=== PATIENT | male | born 1965 | race Two or more races ===

== ENCOUNTER → 2024-05-22 | Outpatient (CLI) | payer MEDICAID, SELFPAY ==
--- NOTE | 2024-05-22 10:32 | XR_ITS ---
Examination: Knee, right , 3 views Technique: Knee AP, lateral, oblique 3 views Date and time of exam: May 22, 2024 1034 hours INDICATIONS: Right knee pain beginning 3 months ago FINDINGS: Advanced tricompartment osteoarthritis, most severe medial patellofemoral joints No fracture or dislocation Small knee effusion IMPRESSION: Advanced tricompartment osteoarthritis
--- NOTE | 2024-05-22 10:32 | XR_ITS ---
Examination: Knee, left , 3 views Technique: Knee AP, lateral, oblique 3 views Date and time of exam: May 22, 2024 1034 hours INDICATIONS: Onset left knee pain beginning 12 years ago FINDINGS: Advanced tricompartment osteoarthritis, most severe medial and patellofemoral joints No fracture or dislocation IMPRESSION: Advanced tricompartment osteoarthritis
--- NOTE | 2024-05-22 10:32 | XR_ITS ---
Examination: Lumbar spine 3 views Technique one AP lateral coned lateral lower lumbar spine 3 views Exam date and time: May 22, 2024 1041 hours INDICATIONS: Left lower back pain beginning 6 months ago. FINDINGS: Grade 1 spondylolisthesis L5 on S1 Mild to moderate lumbar disc narrowing L4-L5, L5-S1 Prominent lumbar spondylosis No lumbar fracture IMPRESSION: Grade 1 spondylolisthesis L5 on S1 Mild to moderate lumbar degenerative disc disease L4-L5, L5-S1
== END | disposition home or self-care (01) ==
LOC: CDIM 10:24
PROVIDERS: PCP Physician Assistant; Referring Provider Physician Assistant; Visit Provider Physician Assistant
DX: M17.0 Bilateral primary osteoarthritis of knee (principal); M43.17 Spondylolisthesis, lumbosacral region; M51.369 Other intervertebral disc degeneration, lumbar region without mention of lumbar back pain or lower extremity pain; M51.379 Other intervertebral disc degeneration, lumbosacral region without mention of lumbar back pain or lower extremity pain
CPT/HCPCS: 72100; 73562

== ENCOUNTER → 2024-07-16 | Outpatient (CLI) | payer MEDICAID, SELFPAY ==
--- NOTE | 2024-07-16 14:36 | XR_ITS ---
Examination: Shoulder,right, 3 views Technique: Shoulder AP internal rotation, AP external rotation, Y view shoulder, 3 views Exam date and time :July 16, 2024 1446 hours INDICATIONS: Right shoulder pain beginning one year ago. FINDINGS: Advanced narrowing glenohumeral joint No fracture or shoulder dislocation Moderate osteoarthritis acromioclavicular joint IMPRESSION: Advanced narrowing glenohumeral joint
== END | disposition home or self-care (01) ==
PROVIDERS: PCP Physician Assistant; Referring Provider Internal Medicine Rheumatology; Visit Provider Internal Medicine Rheumatology
DX: M25.811 Other specified joint disorders, right shoulder (principal)
CPT/HCPCS: 73030

== ENCOUNTER 2024-11-02 15:31 | Emergency (ER) | payer MEDICAID, SELFPAY ==
[2024-11-02 15:32] VITALS: BMI 29.0
[2024-11-02 16:02] VITALS: BP 121/74; PULSE 62; RESP 16; TEMP 37; O2SAT 96
--- NOTE | 2024-11-02 16:37 | EDNOTE_ITS ---
ED Back Injury Pain RME/HPI General Chief Complaint: Back Pain/Injury Stated Complaint: BACK PAIN Time Seen by Provider: 11/02/24 15:55 Source: patient Arrival date/time: 11/02/24 15:31 This is a case of 59-year-old male who came in in the emergency room with low back pain for 3 days worse today patient have history of chronic low back pain DDD of the lumbar since 2024 patient states that he had already MRI in the past and was treated for his chronic low back pain but lost follow-up patient is fine until 3 days prior to arrival in the emergency room patient started to have low back pain no history of recent injury or trauma thus decided to start consult here in the emergency room denies any numbness weakness tingling sensation denies any incontinence to urine or stool denies any flank pain denies any urinary symptoms Limitations: no limitations Related Data Home Medications ?Medication ?Instructions ?Recorded ?Confirmed hydrocodone 10 mg-acetaminophen 1 tab PO TID PRN Pain 11/27/18 01/11/23 325 mg tablet (Sedona) Previous Rx's ?Medication ?Instructions ?Recorded albuterol sulfate 90 mcg/actuation 2 inh inhalation Q4 H PRN 03/04/22 aerosol inhaler (Proventil HFA) bronchospasm #6.7 gram s ibuprofen 800 mg tablet (IBU) 800 mg PO Q8H #20 tabs 0 09/04/23 meloxicam 7.5 mg tablet 7.5 mg PO QDAY #10 tabs 12/27 11/18 methocarbamol 500 mg tablet 500 mg PO BID PRN neck str ain #12 01/21/24 tabs ondansetron 4 mg disintegrating 4 mg PO Q8H PRN nausea and 03/13/24 tablet vomiting #20 tabs tamsulosin 0.4 mg capsule (Flomax) 0.4 mg PO QDAY #5 c aps 03/13/24 cyclobenzaprine 10 mg tablet 10 mg PO BID PRN muscle s pasm #10 11/02/24 tabs hydrocodone 5 mg-acetaminophen 325 1 tab PO Q6H PRN pa in #10 tabs 11/02/24 mg tablet Allergies Allergy/AdvReac Type Severity Reaction Status Date / Time No Known Allergies Allergy Verified 11/02/24 15:34 Review of Systems Review of Systems Systems Reviewed: All systems reviewed, normal except as documented Constitutional Constitutional: Reports system reviewed and no additional complaints, except as documented and Reports as per HPI ENT Ears, Nose, Mouth, and Throat: Denies neck pain Cardiovascular Cardiovascular: Reports system reviewed and no additional complaints, except as documented and Reports as per HPI Respiratory Respiratory: Reports system reviewed and no additional complaints, except as documented and Reports as per HPI Gastrointestinal Gastrointestinal: Reports system reviewed and no additional complaints, except as documented and Reports as per HPI Musculoskeletal Musculoskeletal: Reports system reviewed and no additional complaints, except as documented, Reports as per HPI, Denies abnormal gait, Denies arthralgias, Denies atrophy, Reports back pain, Denies deformity, Denies joint swelling, Denies limited range of motion, Denies loss of height, Denies muscle cramps, Denies muscle weakness, Denies myalgias, Denies neck pain, Denies numbness, Denies radiating pain into limb, Denies stiffness and Denies tingling Neurologic Neurologic: Reports system reviewed and no additional complaints, except as documented, Reports as per HPI, Denies abnormal gait, Denies numbness and Denies tingling Past Medical History Past Medical History NEUROLOGIC: Negative Neurological Disorders or Seizures CARDIAC: Positive Cardiac Disorders and Varicose Veins; Negative Congestive Heart Failure RESPIRATORY: Negative Chronic Obstructive Pulmonary Disease (COPD) or Asthma GASTROINTESTINAL: Negative Gastrointestinal Disorders GENITOURINARY: Positive Genitourinary Disorders and Kidney Stones; Negative Renal Disease MUSCULOSKELETAL: Positive Musculoskeletal Disorders, Arthritis and Degenerative Disk Disease ENDOCRINE: Negative Endocrine Disorders, Diabetes Mellitus Type 1 or Diabetes Mellitus Type 2 HEMATOLOGIC: Negative Blood Disorders or Sickle Cell Disease OTHER HISTORY: Negative Hospitalization, Autoimmune Disease, Shingles, Falls, Blood Transfusions, Blood Transfusion Reaction, Anesthesia Reactions, MRSA, Clostridium Difficile or Cancer Family History FAMILY HISTORY: Negative Family Psychiatric Problems, Family Respiratory Disorders, Family Cardiac Disorders, Family Gastrointestinal Problems, Family Cancer, Family Surgery or Family Anesthesia Reaction Surgical History SURGICAL: Positive Arthroscopy (left shoulder) Social History SMOKING STATUS: Never smoker SUBSTANCE USE: does not use ED Exam General Limitations: Present no limitations General appearance: Present alert, in no apparent distress and other (Patient is awake alert oriented not in distress nontoxic looking); Absent appears intoxicated Head Head exam: Present atraumatic, normocephalic and normal inspection Eye Eye exam: Present normal appearance, PERRL and EOMI ENT ENT exam: Present normal exam, normal oropharynx and mucous membranes moist Neck Neck exam: Present normal inspection, full ROM and trachea midline; Absent tenderness, meningismus, lymphadenopathy or thyromegaly Chest Chest inspection: Present normal inspection and symmetric chest wall rise Respiratory Respiratory exam: Present normal lung sounds bilaterally; Absent respiratory distress, wheezes, stridor or prolonged expiratory phase Cardiovascular Cardiovascular exam: Present regular rate, normal rhythm and normal heart sounds Abdominal Exam Abdominal exam: Present soft and normal bowel sounds; Absent distention or tenderness Extremities Exam Extremities exam: Present normal inspection and full ROM Back Exam Back exam: Present normal inspection, full ROM, tenderness (Mild tenderness on the L1 L5) and other (No lordosis no kyphosis neurovascular intact); Absent CVA tenderness (R), CVA tenderness (L), muscle spasm, paraspinal tenderness, vertebral tenderness, rashes, sciatic notch tenderness (R), sciatic notch tender ness (L), straight leg raise (R) or straight leg raise (L) Neurological Exam Neurological exam: Present alert, oriented X3, CN II-XII intact, normal gait and reflexes normal; Absent motor sensory deficit Psychiatric Psychiatric exam: Present normal affect and normal mood Skin Skin exam: Present warm, dry, intact and normal color Course Quality Measures none Orders Category Date Time Status Dexamethasone Inj [Decadron Inj] Med 11/02/24 16:30 Discontinued 10 mg IM X1 ONE Ketorolac Inj [Toradol Inj] Med 11/02/24 16:30 Discontinued 30 mg IM X1 ONE Vital Signs Vital signs: Vital Signs Temperature 98.6 F 11/02/24 16:02 Pulse Rate 62 11/02/24 16:02 Respiratory Rate 16 11/02/24 16:02 Blood Pressure 121/74 11/02/24 16:02 Pulse Oximetry (%) 96 11/02/24 16:02 Oxygen Delivery Method Room Air 11/02/24 16:02 Patient is afebrile not tachycardic not tachypneic BP stable not hypoxic oxygen saturation is 96% on room Back Pain / Injury MDM Narrative MDM Narrative:: This is a case of 59-year-old male who came in in the emergency room with low back pain for 3 days worse today patient have history of chronic low back pain DDD of the lumbar since 2024 patient states that he had already MRI in the past and was treated for his chronic low back pain but lost follow-up patient is fine until 3 days prior to arrival in the emergency room patient started to have low back pain no history of recent injury or trauma thus decided to start consult here in the emergency room denies any numbness weakness tingling sensation denies any incontinence to urine or stool denies any flank pain denies any urinary symptoms patient is awake alert oriented not in distress nontoxic looking patient refused any test or any imaging only wanted to have pain medication here patient already took Sedona and wanted to have Toradol injection patient was given Toradol IM and dexamethasone IM here in the emergency room physical examination patient is a noted to have mild to moderate tenderness on L1 L5 no crepitation no deformity no redness no swelling no paravertebral tenderness no paraspinal tenderness no kyphosis no lordosis no CVA tenderness steady gait leg raise exam is negative abdominal exam is benign no guarding no rebound no rigidity the rest of the physical examination and neurological exam is normal and unremarkable at this point I discussed with the patient importance to see the PCP to be referred to neurosurgeon for MRI to rule out herniated disc and pain management doctor for pain control patient was prescribed with Sedona and Flexeril and he was well informed that to not take the medication at the same time Patient was discharged with comfortable condition walking with stable gait. Patient verbalized no further complains explained diagnosis and answered patient question. Patient is comfortable with the proposed management plan including the need to follow up with his/her primary care physician and any specialist if applicable Discussed patient for any urgent condition or worsening sx, He/She needed to go to emergency room immediately or call 911. Patient acknowledge the responsibility to follow up as instructed and to monitor her/his symptoms. For any persistence of the symptoms for more than 3-5 days return precaution advised. Discussed the result of the test and was given printed discharge instruction at the time of exam no signs and symptoms of cauda equina Patient data External records reviewed:: [facility] previous records Clinical information provided by:: patient Social determinants that could affect healthcare access:: none Patient has the following chronic illnesses:: None How is presenting disease/condition affected by chronic disease/condition?: no chronic disease Evaluation data The following diagnostics were reviewed and interpreted by me:: other (specify) (None) Lab and/or radiology exams considered but not ordered:: None Interpretation Summary: None Medications / Prescriptions Medications or Prescriptions considered but not ordered:: Given Medication administrations:: Medication Administration History Discontinued Medications Dexamethasone Sodium Phosphate (Dexamethasone Sod Phos Inj 10 Mg/Ml Vial) 10 mg IM X1 ONE Stop: 11/02/24 16:31 Ketorolac Tromethamine (Ketorolac Inj 60 Mg/2 Ml Vial) 30 mg IM X1 ONE Stop: 11/02/24 16:31 Given Consultations Consultation(s) initiated? (list below): No Diagnosis Differential diagnosis back pain/injury: lumbar radiculopathy, sciatica and strain of lumbar region Most likely diagnosis given after review of the tests above:: Chronic low back pain muscle spasm Admission Indicated Admission indicated?: not indicated Explain why admission is indicated or not indicated:: Not indicated Admission Request Was there a request for admission?: No Admission Attestation Admission request attestation: Not indicated Disposition Plan Disposition Plan: Discharge Discharge Attestation Discharge Attestation: The patient and all family members were given an opportunity to ask questions and understood the discharge instructions. Discharge instructions specifically effects, indications for sooner follow up or return to the emergency department, and the expected course of current diagnosis. Patient condition: Stable Discharge Plan Plan Patient Disposition: HOME (Self Care) Patient condition on transfer: Stable Prescriptions/Referrals Prescriptions/Med Rec: New hydrocodone-acetaminophen 5-325 mg tablet 1 tab PO Q6H MDD maximum 4 tabs per day PRN (Reason: pain) Qty: 10 0RF cyclobenzaprine 10 mg tablet 10 mg PO BID PRN (Reason: muscle spasm) Qty: 10 0RF No Action hydrocodone-acetaminophen [Sedona] 10-325 mg Tablet 1 tab PO TID PRN (Reason: Pain) meloxicam 7.5 mg tablet 7.5 mg PO QDAY Qty: 10 0RF methocarbamol 500 mg tablet 500 mg PO BID PRN (Reason: neck strain) Qty: 12 0RF albuterol sulfate [Proventil HFA] 90 mcg/actuation HFA aerosol inhaler 2 inh inhalation Q4H PRN (Reason: bronchospasm) Qty: 6.7 0RF ibuprofen [IBU] 800 mg tablet 800 mg PO Q8H Qty: 20 0RF tamsulosin [Flomax] 0.4 mg capsule 0.4 mg PO QDAY Qty: 5 0RF Rx Instructions: Stop taking if pass the stone ondansetron 4 mg tablet,disintegrating 4 mg PO Q8H PRN (Reason: nausea and vomiting) Qty: 20 0RF Problem List Clinical Impression: Chronic bilateral low back pain, Muscle spasm Patient/Caregiver Discharge Instructions Education Materials: Understanding Chronic Pain, Managing Chronic Pain, ED Back Spasm, No Trauma Additional Instructions: Follow-up with your primary care physician in 2 days for reevaluation and to be referred to neurosurgeon for further evaluation and treatment of your chronic low back pain for possible MRI to rule out herniated disc and to be referred to pain management doctor for pain control for any worsening symptoms or any emergent concerns such as numbness weakness tingling sensation incontinence to urine or stool call 911 or go to the nearest emergency room ice pack and warm compress as needed for pain Print Language: English Stand Alone Forms: Leticia Award Info., Patient Portal Info Letter PA/FAMILY LIFE COUNSELOR Supervising Physician PA/SCARLETT Supervising Physician: dr chavez
[2024-11-02] MEDS: KETOROLAC INJ 60 MG/2 ML VIAL 30 MG IM (16:42)
[2024-11-02] MEDS: DEXAMETHASONE SOD PHOS INJ 10 MG/ML VIAL IM (16:46)
== END 2024-11-02 16:54 | disposition home or self-care (01) ==
LOC: SERX 16:54
PROVIDERS: Emergency Provider Family Medicine
DX: M54.50 Low back pain, unspecified (principal); M62.838 Other muscle spasm; G89.29 Other chronic pain
CPT/HCPCS: 96372; 99283; J1100; J1885

== ENCOUNTER 2024-11-28 13:22 | Emergency (ER) | payer MEDICAID, SELFPAY ==
[2024-11-28 14:07] VITALS: BP 143/67; PULSE 63; RESP 18; TEMP 37.1; O2SAT 95
--- NOTE | 2024-11-28 14:18 | PD.EDRME ---
Rapid Medical Screening Exam E Arrival date/time: 11/28/24 13:22 This is a 59-year-old male that comes in to the emergency room with complaints of urinary discomfort. Patient states it feels like he had a kidney stone like he had previously patient having dysuria and urinary frequency.. Patient denies any fever, nausea, vomiting, diarrhea. I have greeted and performed a focused initial assessment of this patient. Initial appropriate labs ordered at this time. A comprehensive ED assessment and evaluation of the patient and analysis of all test and completion of medical decision making process will be conducted by additional ED provider. Chief Complaint: Urogenital-Male Time Seen by Provider: 11/28/24 13:34 Vital signs: Vital Signs Temperature 98.8 F 11/28/24 14:07 Pulse Rate 63 11/28/24 14:07 Respiratory Rate 18 11/28/24 14:07 Blood Pressure 143/67 H 11/28/24 14:07 Pulse Oximetry (%) 95 11/28/24 14:07 Oxygen Delivery Method Room Air 11/28/24 14:07
[2024-11-28 14:33] LABS: Collection Type, Urine Voided
[2024-11-28 14:43] LABS: Bilirubin,Urine Negative (Negative); Blood,Urine Negative (Negative); Clarity,Urine Clear (Clear/Hazy); Color,Urine Lt-Yellow (Lt Yel-Yel); Culture Indicated,Urine Not Indicated; Glucose, Urine Negative (Negative); Ketones,Urine Negative (Negative); Leukocyte Esterase,Urine Negative (Negative); Nitrite,Urine Negative (Negative); PH,Urine 6.0 (5.0-7.0); Protein,Urine Negative (Neg - Trace); RBC,Urine < 1 /hpf (0-3); Specific Gravity,Urine 1.023 (1.001-1.035); Squamous Epithelial Cell,Urine < 1 /hpf (0-5); Urobilinogen,Urine Negative mg/dL (0.0-1.0); WBC,Urine < 1 /hpf (0-5)
--- NOTE | 2024-11-28 14:56 | XR_ITS ---
Examination: CT abdomen and pelvis without contrast. Coronal 3-D reconstructions. Sagittal 2-D reconstructions. Date and time of exam:November 28, 2024 at 1524 hours Comparison March 12, 2024 INDICATIONS: Flank pain with burning urination today CTDI: vol (mGy): 8.88 DLP: (mGycm): 503. Technique: Axial images of the abdomen have been obtained, 3 mm slice thickness Intravenous contrast material has not been administered. Low dose protocols were performed. One or more of the following dose reduction techniques were used; automated exposure control, adjustment of the mA and/or KV according to patient size, use of iterative reconstruction technique. Findings: No focal liver or splenic lesions Contracted gallbladder No pancreatic or adrenal mass 5 mm right renal calculus 2 mm left renal calculus. Minimal wall thickening left ureter, no hydronephrosis or ureteral calculi Normal appendix No bowel obstruction Normal seminal vesicles No significant prostatomegaly Urinary bladder wall thickening up to 4 mm Grade 1 spondylolisthesis of L5 on S1. IMPRESSION: Bilateral renal calculi Findings consistent with left urinary tract infection and mild cystitis
[2024-11-28 15:28] LABS: Basophils # (Auto) 0.1 Thou/mm3 (0.0-0.2); Basophils % (Auto) 1 % (0-2.5); Eosinophils # (Auto) 0.4 Thou/mm3 (0.0-0.5); Eosinophils % (Auto) 5 % (0-10); Hematocrit 44.2 % (41.0-53.0); Hemoglobin 15.0 g/dL (13.5-16.0); Immature Granulocytes Auto 0.03 Thou/mm3 (0.00-0.00); Lymphocytes # (Auto) 1.8 Thou/mm3 (1.0-4.8); Lymphocytes % (Auto) 22 % (10-50); Mean Corpuscular HGB Conc 33.9 g/dl (31.0-37.0); Mean Corpuscular Hemoglobin 31.4 pg (25.0-35.0); Mean Corpuscular Volume 93 fL (80-100); Monocytes # (Auto) 0.9 Thou/mm3 (0.0-0.8); Monocytes % (Auto) 11 % (0-12); Neutrophils # (Auto) 4.9 Thou/mm3 (1.8-7.7); Neutrophils % (Auto) 61 % (37-80); Nucleated Red Blood Cell # 0.00 Thou/mm3 (0.00-0.00); Nucleated Red Blood Cell % 0 /100 WBC (0); Platelet Count 252 Thou/mm3 (140-440); RDW Standard Deviation 46.5 fL (35.1-43.9); Red Blood Count 4.77 Miln/mm3 (4.50-5.90); White Blood Count 8.0 Thou/mm3 (3.8-10.6)
[2024-11-28 15:31] VITALS: BP 139/83; PULSE 56; RESP 16; TEMP 36.5; O2SAT 95
[2024-11-28 15:46] LABS: Alanine Aminotransferase 16 U/L (10-49); Albumin, Serum 4.1 gm/dL (3.5-5.0); Albumin/Globulin Ratio 1.9 (1.2-2.2); Alkaline Phosphatase 51 U/L (46-116); Anion Gap 7 (7-16); Aspartate Amino Transferase 17 U/L (0-34); BUN/Creatinine Ratio 9 Ratio (12-20); Bilirubin,Total 0.7 mg/dL (0.3-1.2); Blood Urea Nitrogen 13 mg/dL (9-23); Calcium 8.9 mg/dL (8.3-10.6); Calcium (Corrected) 8.9 mg/dL (8.5-10.1); Carbon Dioxide 29.5 mMol/L (20.0-31.0); Chloride 106 mMol/L (98-107); Creatinine (Component) 1.4 mg/dL (0.6-1.3); Globulin 2.2 gm/dL (2.3-3.5); Glucose 94 mg/dL (74-106); Lipase 32 U/L (12-53); Osmolality,Calculated 283 (275-295); Potassium 4.0 mMol/L (3.4-5.1); Sodium 142 mMol/L (136-145); Total Protein 6.3 gm/dL (5.7-8.2); eGFR 58 See Note
--- NOTE | 2024-11-28 15:46 | PD.EDMALE ---
ED Male Genitalurinary RME/HPI General Chief complaint: Urogenital-Male Stated complaint: Lower abdominal pain, painful urination Time Seen by Provider: 11/28/24 13:34 Arrival date/time: 11/28/24 13:22 Limitations: no limitations RME / HPI RME / HPI Narrative: 11/28/24 13:22 This is a 59-year-old male that comes in to the emergency room with complaints of urinary discomfort. Patient states it feels like he had a kidney stone like he had previously patient having dysuria and urinary frequency.. Patient denies any fever, nausea, vomiting, diarrhea. I have greeted and performed a focused initial assessment of this patient. Initial appropriate labs ordered at this time. A comprehensive ED assessment and evaluation of the patient and analysis of all test and completion of medical decision making process will be conducted by additional ED provider. DR. HALL MAIN ED EVALUATION: 59 year old male with past medical history significant for kidney stones presents to the Emergency Department with complaint of lower abdominal pain/ suprapubic pain. He states he has more pain in the mornings when his bladder is full and when he urinates he feels a little relief from the pain. He takes Flomax. He states his pain has resolved. Related Data Home Medications ?Medication ?Instructions ?Recorded ?Confirmed hydrocodone 10 mg-acetaminophen 1 tab PO TID PRN Pain 11/27/18 01/11/23 325 mg tablet ([place]) Previous Rx's ?Medication ?Instructions ?Recorded albuterol sulfate 90 mcg/actuation 2 inh inhalation Q4H PRN 03/04/22 aerosol inhaler (Proventil HFA) bronchospasm #6.7 grams ibuprofen 800 mg tablet (IBU) 800 mg PO Q8H #20 tabs 09/04/23 meloxicam 7.5 mg tablet 7.5 mg PO QDAY #10 tabs 01/21/24 methocarbamol 500 mg tablet 500 mg PO BID PRN neck strain #12 01/21/24 tabs ondansetron 4 mg disintegrating 4 mg PO Q8H PRN nausea and 03/13/24 tablet vomiting #20 tabs tamsulosin 0.4 mg capsule (Flomax) 0.4 mg PO QDAY #5 caps 03/13/24 cyclobenzaprine 10 mg tablet 10 mg PO BID PRN muscle spasm #10 11/02/24 tabs hydrocodone 5 mg-acetaminophen 325 1 tab PO Q6H PRN pain #10 tabs 11/02/24 mg tablet Allergies Allergy/AdvReac Type Severity Reaction Status Date / Time No Known Allergies Allergy Verified 11/28/24 13:28 Review of Systems Review of Systems Systems Reviewed: All systems reviewed, normal except as documented Past Medical History Past Medical History CARDIAC: Positive Cardiac Disorders and Varicose Veins GENITOURINARY: Positive Genitourinary Disorders and Kidney Stones MUSCULOSKELETAL: Positive Musculoskeletal Disorders, Arthritis and Degenerative Disk Disease Surgical History SURGICAL: Positive Arthroscopy (left shoulder) Social History SMOKING STATUS: Never smoker SUBSTANCE USE: does not use ALCOHOL: Never ED Exam General Limitations: Present no limitations General appearance: Present alert and in no apparent distress Head Head exam: Present atraumatic, normocephalic and normal inspection Eye Eye exam: Present normal appearance, PERRL and EOMI ENT ENT exam: Present normal exam, normal oropharynx and mucous membranes moist Neck Neck exam: Present normal inspection, full ROM and trachea midline Chest Chest inspection: Present normal inspection and symmetric chest wall rise Respiratory Respiratory exam: Present normal lung sounds bilaterally Cardiovascular Cardiovascular exam: Present regular rate, normal rhythm and normal heart sounds Abdominal Exam Abdominal exam: Present soft and normal bowel sounds Extremities Exam Extremities exam: Present normal inspection and full ROM Back Exam Back exam: Present normal inspection and full ROM Neurological Exam Neurological exam: Present alert, oriented X3 and CN II-XII intact Psychiatric Psychiatric exam: Present normal affect and normal mood Skin Skin exam: Present warm, dry, intact and normal color Course Quality Measures none Orders Category Date Time Status CT abdomen pelvis wo con Stat Exams 11/28/24 14:56 Completed CBC Stat Lab 11/28/24 15:19 Completed Comprehensive Metabolic Panel Stat Lab 11/28/24 15:19 Completed Lipase Stat Lab 11/28/24 15:19 Completed Urinalysis, C/S if Indicated Stat Lab 11/28/24 14:22 Completed Vital Signs Vital signs: Vital Signs Temperature 98.8 F 11/28/24 14:07 Pulse Rate 63 11/28/24 14:07 Respiratory Rate 18 11/28/24 14:07 Blood Pressure 143/67 H 11/28/24 14:07 Pulse Oximetry (%) 95 11/28/24 14:07 Oxygen Delivery Method Room Air 11/28/24 14:07 Urogenital - Male MDM Narrative MDM Narrative:: I, Shakila Jason, am scribing for and in the presence of Dr. Hall. Abdominal pain has resolved. Labs are normal. Urine is clear. Plan to discharge. Patient data External records reviewed:: [facility] previous records Clinical information provided by:: patient Social determinants that could affect healthcare access:: none Patient has the following chronic illnesses:: Kidney stones, takes Flomax How is presenting disease/condition affected by chronic disease/condition?: exacerbated by Evaluation data The following diagnostics were reviewed and interpreted by me:: lab results and radiology exam(s) Lab and/or radiology exams considered but not ordered:: none Interpretation Summary: Procedure(s): CT abdomen pelvis wo con Accession Number(s): [id number] cc: Michael Holt; Jeremie Fraga MD; Lea Gannon NP~ Examination: CT abdomen and pelvis without contrast. Coronal 3-D reconstructions. Sagittal 2-D reconstructions. Date and time of exam:November 28, 2024 at 1524 hours Comparison March 12, 2024 INDICATIONS: Flank pain with burning urination today CTDI: vol (mGy): 8.88 DLP: (mGycm): 503. Technique: Axial images of the abdomen have been obtained, 3 mm slice thickness Intravenous contrast material has not been administered. Low dose protocols were performed. One or more of the following dose reduction techniques were used; automated exposure control, adjustment of the mA and/or KV according to patient size, use of iterative reconstruction technique. Findings: No focal liver or splenic lesions Contracted gallbladder No pancreatic or adrenal mass 5 mm right renal calculus 2 mm left renal calculus. Minimal wall thickening left ureter, no hydronephrosis or ureteral calculi Normal appendix No bowel obstruction Normal seminal vesicles No significant prostatomegaly Urinary bladder wall thickening up to 4 mm Grade 1 spondylolisthesis of L5 on S1. IMPRESSION: Bilateral renal calculi Findings consistent with left urinary tract infection and mild cystitis Dictated By: Jeremie Fraga MD Medications / Prescriptions Medications or Prescriptions considered but not ordered:: none Medication administrations:: see above if any Consultations Consultation(s) initiated? (list below): No Diagnosis Urogenital Male Differential Diagnosis: urinary tract infection and other (sepsis, abdominal pain) Most likely diagnosis given after review of the tests above:: Abdominal pain, resolved Bilateral kidney stones Admission Indicated Admission indicated?: not indicated Admission Request Was there a request for admission?: No Disposition Plan Disposition Plan: Discharge Discharge Attestation Discharge Attestation: The patient and all family members were given an opportunity to ask questions and understood the discharge instructions. Discharge instructions specifically effects, indications for sooner follow up or return to the emergency department, and the expected course of current diagnosis. Patient condition: Stable Discharge Plan Plan Patient Disposition: HOME (Self Care) Patient condition on transfer: Stable Prescriptions/Referrals Prescriptions/Med Rec: No Action hydrocodone-acetaminophen [[place]] 10-325 mg Tablet 1 tab PO TID PRN (Reason: Pain) meloxicam 7.5 mg tablet 7.5 mg PO QDAY Qty: 10 0RF methocarbamol 500 mg tablet 500 mg PO BID PRN (Reason: neck strain) Qty: 12 0RF hydrocodone-acetaminophen 5-325 mg tablet 1 tab PO Q6H MDD maximum 4 tabs per day PRN (Reason: pain) Qty: 10 0RF cyclobenzaprine 10 mg tablet 10 mg PO BID PRN (Reason: muscle spasm) Qty: 10 0RF albuterol sulfate [Proventil HFA] 90 mcg/actuation HFA aerosol inhaler 2 inh inhalation Q4H PRN (Reason: bronchospasm) Qty: 6.7 0RF ibuprofen [IBU] 800 mg tablet 800 mg PO Q8H Qty: 20 0RF tamsulosin [Flomax] 0.4 mg capsule 0.4 mg PO QDAY Qty: 5 0RF Rx Instructions: Stop taking if pass the stone ondansetron 4 mg tablet,disintegrating 4 mg PO Q8H PRN (Reason: nausea and vomiting) Qty: 20 0RF Referrals: Michael Castro [Primary Care Provider] - In 1 week Problem List Clinical Impression: Bilateral kidney stones Impression comment: Abdominal pain, resolved Patient/Caregiver Discharge Instructions Additional Instructions: Take Tylenol 500 mg 2 tabs every 6 hours PLUS Advil 200 mg gel 2 tablets as needed for pain. Please follow-up with your primary care physician within 2-3 days. Return to the Emergency Department as needed. [place] Tylenol 500 mg 2 tabletas cada 6 horas Y TAMBIEN Advil 200 mg gel 2 tabletas seg?n sea necesario para el dolor. Kevin un seguimiento con garcia m?dico de cabecera dentro de 2-3 guallpa. Regrese al Departamento de Emergencias seg?n sea necesario. Print Language: Armenian Stand Alone Forms: Leticia Award Info., Patient Portal Info Letter
[2024-11-28 17:15] VITALS: BP 119/78; PULSE 60; RESP 17; O2SAT 96
== END 2024-11-28 17:21 | disposition home or self-care (01) ==
PROVIDERS: Nurse Practitioner Family; Emergency Provider Family Medicine; PCP Physician Assistant
DX: N20.0 Calculus of kidney (principal)
CPT/HCPCS: 36415; 74176; 80053; 81001; 83690; 85025; 99284

== ENCOUNTER 2025-02-02 01:56 | Emergency (ER) | payer MEDICAID, SELFPAY ==
[2025-02-02 02:02] VITALS: BP 153/76; PULSE 55; RESP 19; TEMP 36.4; O2SAT 97; BMI 30.6
--- NOTE | 2025-02-02 02:08 | XR_ITS ---
Examination: CT abdomen and pelvis without contrast. Coronal 3-D reconstructions. Sagittal 2-D reconstructions. Date and time of exam:January 28, 2025, 0241 hrs. Indications: Abdominal pain today. CTDI: vol (mGy): 7.68. DLP: (mGycm): 463. Technique: Axial images of the abdomen have been obtained, 3 mm slice thickness Intravenous contrast material has not been administered. Low dose protocols were performed. One or more of the following dose reduction techniques were used; automated exposure control, adjustment of the mA and/or KV according to patient size, use of iterative reconstruction technique. Findings: No focal liver or splenic lesions. No gallstones. No pancreatic or adrenal mass. Right ureteral calculi, the largest 6 mm Aorta normal size. Normal appendix. Multiple fluid distended small bowel loops No diverticulitis Contracted urinary bladder. No significant prostatomegaly. Grade 1 spondylolisthesis L5 on S1. Impression: Suspicious for early small bowel obstruction, consider Gastrografin small bowel series follow-up.
--- NOTE | 2025-02-02 02:08 | PD.EDRME ---
Rapid Medical Screening Exam RME Arrival date/time: 02/02/25 01:56 This is a case of 59-year-old male with no medical history came in in the emergency room due to abdominal pain nausea vomiting no diarrhea for 1 day worsening of the symptoms this patient decided to start consult here in the emergency room Chief Complaint: Abdominal Pain Time Seen by Provider: 02/02/25 02:08 Vital signs: Vital Signs Temperature 97.6 F 02/02/25 02:02 Pulse Rate 55 L 02/02/25 02:02 Respiratory Rate 19 02/02/25 02:02 Blood Pressure 153/76 H 02/02/25 02:02 Pulse Oximetry (%) 97 02/02/25 02:02 Oxygen Delivery Method Room Air 02/02/25 02:02
[2025-02-02 02:34] LABS: Collection Type, Urine Clean Catch; WBC,Urine 0 /hpf (0-5)
[2025-02-02 02:42] LABS: Basophils # (Auto) 0.1 Thou/mm3 (0.0-0.2); Basophils % (Auto) 1 % (0-2.5); Eosinophils # (Auto) 0.4 Thou/mm3 (0.0-0.5); Eosinophils % (Auto) 3 % (0-10); Hematocrit 49.5 % (41.0-53.0); Hemoglobin 16.5 g/dL (13.5-16.0); Immature Granulocytes Auto 0.05 Thou/mm3 (0.00-0.00); Lymphocytes # (Auto) 1.7 Thou/mm3 (1.0-4.8); Lymphocytes % (Auto) 14 % (10-50); Mean Corpuscular HGB Conc 33.3 g/dl (31.0-37.0); Mean Corpuscular Hemoglobin 31.0 pg (25.0-35.0); Mean Corpuscular Volume 93 fL (80-100); Monocytes # (Auto) 0.7 Thou/mm3 (0.0-0.8); Monocytes % (Auto) 6 % (0-12); Neutrophils # (Auto) 9.0 Thou/mm3 (1.8-7.7); Neutrophils % (Auto) 76 % (37-80); Nucleated Red Blood Cell # 0.00 Thou/mm3 (0.00-0.00); Nucleated Red Blood Cell % 0 /100 WBC (0); Platelet Count 247 Thou/mm3 (140-440); RDW Standard Deviation 43.6 fL (35.1-43.9); Red Blood Count 5.33 Miln/mm3 (4.50-5.90); White Blood Count 12.0 Thou/mm3 (3.8-10.6)
--- NOTE | 2025-02-02 02:52 | EDNOTE_ITS ---
ED Abdominal Pain RME/HPI General Chief Complaint: Abdominal Pain Stated complaint: ABD PAIN Time seen by provider: 02/02/25 02:08 Arrival date/time: 02/02/25 01:56 RME / HPI RME / HPI narrative: 02/02/25 01:56 This is a case of 59-year-old male with no medical history came in in the emergency room due to abdominal pain nausea vomiting no diarrhea for 1 day worsening of the symptoms this patient decided to start consult here in the em ergency room DR. RYAN MAIN ED EVALUATION: 59 y/o male with Hx of Kidney Stones presents to ED c/o abdominal pain and vomiting x 6 hours. Patient states that he drank a bottle of water with marina seeds and a lemon slice this morning, and is still seeing remnants of the seeds in his emesis now. Patient was seen in November and was informed that he had kidney stones in his kidneys. Denies any surgical history of the abdomen. Related Data Home Medications ?Medication ?Instructions ?Recorded ?Confirmed hydrocodone 10 mg-acetaminophen 1 tab PO TID PRN Pain 11/27/18 01/11/23 325 mg tablet ([place]) Previous Rx's ?Medication ?Instructions ?Recorded albuterol sulfate 90 mcg/actuation 2 inh inhalation Q4 H PRN 03/04/22 aerosol inhaler (Proventil HFA) bronchospasm #6.7 gram s ibuprofen 800 mg tablet (IBU) 800 mg PO Q8H #20 tabs 0 09/04/23 meloxicam 7.5 mg tablet 7.5 mg PO QDAY #10 tabs 12/27 11/18 methocarbamol 500 mg tablet 500 mg PO BID PRN neck str ain #12 01/21/24 tabs ondansetron 4 mg disintegrating 4 mg PO Q8H PRN nausea and 03/13/24 tablet vomiting #20 tabs tamsulosin 0.4 mg capsule (Flomax) 0.4 mg PO QDAY #5 c aps 03/13/24 cyclobenzaprine 10 mg tablet 10 mg PO BID PRN muscle s pasm #10 11/02/24 tabs hydrocodone 5 mg-acetaminophen 325 1 tab PO Q6H PRN pa in #10 tabs 11/02/24 mg tablet ondansetron 4 mg disintegrating 4 mg PO Q6H PRN nausea and 02/02/25 tablet vomiting #20 tabs Allergies Allergy/AdvReac Type Severity Reaction Status Date / Time No Known Allergies Allergy Verified 02/02/25 01:57 Review of Systems Review of Systems Systems Reviewed: All systems reviewed, normal except as documented Past Medical History Past Medical History CARDIAC: Positive Varicose Veins GENITOURINARY: Positive Kidney Stones MUSCULOSKELETAL: Positive Arthritis and Degenerative Disk Disease Surgical History SURGICAL: Positive Arthroscopy ED Exam Narrative Physical exam: Generally patient is alert in no obvious distress not vomiting, heart regular rate and rhythm, lungs clear to auscultation equal bilaterally, abdomen soft slightly distended and minimally tympanic and nontender currently. Normal active bowel sounds could be heard. Extremities show no edema. Neurologic exam showed Rosie Coma Scale of 15, skin is warm and dry Course Quality Measures none Orders Category Date Time Status Insert IV NOW Care 02/02/25 02:[address] abdomen pelvis wo con Stat Exams 02/02/25 02:08 Taken CBC Stat Lab 02/02/25 02:17 Completed Comprehensive Metabolic Panel Stat Lab 02/02/25 02:17 Completed Lipase Stat Lab 02/02/25 02:17 Completed Urinalysis Stat Lab 02/02/25 02:26 Completed Morphine* Inj Med 02/02/25 02:52 Discontinued 4 mg IVP X1 ONE Ondansetron Inj [Zofran Inj] Med 02/02/25 02:52 Discontinued 4 mg IVP X1 ONE Vital Signs Vital signs: Vital Signs Temperature 97.6 F 02/02/25 02:02 Pulse Rate 55 L 02/02/25 02:02 Respiratory Rate 19 02/02/25 02:02 Blood Pressure 153/76 H 02/02/25 02:02 Pulse Oximetry (%) 97 02/02/25 02:02 Oxygen Delivery Method Room Air 02/02/25 02:02 Abdominal Pain MDM MDM Narrative MDM Narrative:: Scribe Attestation: Cathryn Weeks am scribing for and in the presence of Dr. Ryan. Provider Notation: Although this document has been carefully reviewed, there may still be some phonetic and other typographical errors. These errors are purely grammatical due to imperfections in the software program and should not be construed in any way to compromise the substance of the patient's medical care during this visit. Differential diagnosis: Bowel obstruction, enteritis, gallbladder disease, intra-abdominal infection, bowel spasm I interpreted all labs. There is a slight leukocytosis of 12,000. CT scan done of the abdomen and pelvis without contrast showed some dilated loops of small bowel. No radhika obstruction however this could represent early obstruction. Patient has never had abdominal surgeries in the past. He has never had a bowel obstruction in the past. He last had a bowel movement yesterday. Patient did not vomit here in the emergency room. Patient was given morphine 4 mg IV and Zofran 4 mg IV with near total relief. This could still represent the early beginnings of a small bowel obstruction but at this time there is no reason to admit the patient. He has not been vomiting here in the emergency room. He will be discharged with the instructions to take Zofran as prescribed. Clear liquid diet and advance as tolerated. Return to ER as needed or if condition worsens. Patient data External records reviewed:: [facility] previous records (Reviewed prior ED records from 11/28/24. Patient was seen for Abdominal pain.) Clinical information provided by:: patient Social determinants that could affect healthcare access:: none Patient has the following chronic illnesses:: Kidney Stones, Varicose Veins, Arthritis and Degenerative Disk Disease How is presenting disease/condition affected by chronic disease/condition?: exacerbated by Evaluation data The following diagnostics were reviewed and interpreted by me:: lab results and radiology exam(s) Lab and/or radiology exams considered but not ordered:: None Interpretation Summary: RADIOLOGY Abdomen/Pelvis CT: Pending official radiology report. Medications / Prescriptions Medications or Prescriptions considered but not ordered:: None Medication administrations:: Medication Administration History Discontinued Medications Morphine Sulfate (Morphine Sulf Inj 4 Mg/Ml Vial) 4 mg IVP X1 ONE Stop: 02/02/25 02:53 Last Admin: 02/02/25 02:59 Dose: 4 mg Documented By: BD Ondansetron HCl (Ondansetron Inj 2 Mg/Ml Inj 2 Ml) 4 mg IVP X1 ONE; Protocol Stop: 02/02/25 02:53 Last Admin: 02/02/25 02:58 Dose: 4 mg Documented By: BD See above if any Consultations Consultation(s) initiated? (list below): No Diagnosis Differential diagnosis abdominal pain: abdominal pain, acute appendicitis, constipation, diverticulitis, gastroenteritis and small bowel obstruction Most likely diagnosis given after review of the tests above:: None Admission Indicated Admission indicated?: not indicated Explain why admission is indicated or not indicated:: Patient does not meet admission criteria Admission Request Was there a request for admission?: No Disposition Plan Disposition Plan: Discharge Discharge Attestation Discharge Attestation: The patient and all family members were given an opportunity to ask questions and understood the discharge instructions. Discharge instructions specifically effects, indications for sooner follow up or return to the emergency department, and the expected course of current diagnosis. Patient condition: Stable Discharge Plan Plan Patient Disposition: HOME (Self Care) Prescriptions/Referrals Prescriptions/Med Rec: New ondansetron 4 mg tablet,disintegrating 4 mg PO Q6H PRN (Reason: nausea and vomiting) Qty: 20 0RF No Action hydrocodone-acetaminophen [[place]] 10-325 mg Tablet 1 tab PO TID PRN (Reason: Pain) meloxicam 7.5 mg tablet 7.5 mg PO QDAY Qty: 10 0RF methocarbamol 500 mg tablet 500 mg PO BID PRN (Reason: neck strain) Qty: 12 0RF hydrocodone-acetaminophen 5-325 mg tablet 1 tab PO Q6H MDD maximum 4 tabs per day PRN (Reason: pain) Qty: 10 0RF cyclobenzaprine 10 mg tablet 10 mg PO BID PRN (Reason: muscle spasm) Qty: 10 0RF albuterol sulfate [Proventil HFA] 90 mcg/actuation HFA aerosol inhaler 2 inh inhalation Q4H PRN (Reason: bronchospasm) Qty: 6.7 0RF ibuprofen [IBU] 800 mg tablet 800 mg PO Q8H Qty: 20 0RF tamsulosin [Flomax] 0.4 mg capsule 0.4 mg PO QDAY Qty: 5 0RF Rx Instructions: Stop taking if pass the stone ondansetron 4 mg tablet,disintegrating 4 mg PO Q8H PRN (Reason: nausea and vomiting) Qty: 20 0RF Referrals: No Primary/Family,Physician [Primary Care Provider] - In 1 week Problem List Clinical Impression: Abdominal pain Patient/Caregiver Discharge Instructions Education Materials: Abdominal Pain Additional Instructions: Zofran as prescribed. Clear liquid diet and advance as tolerated. Return to the emergency room if condition worsens such as vomiting or pain increases. Print Language: Panamanian Stand Alone Forms: Leticia Award Info., Patient Portal Info Letter
[2025-02-02 02:57] LABS: Alanine Aminotransferase 18 U/L (10-49); Albumin, Serum 4.6 gm/dL (3.5-5.0); Albumin/Globulin Ratio 2.1 (1.2-2.2); Alkaline Phosphatase 65 U/L (46-116); Anion Gap 12 (7-16); Aspartate Amino Transferase 23 U/L (0-34); BUN/Creatinine Ratio 14 Ratio (12-20); Bilirubin,Total 1.0 mg/dL (0.3-1.2); Blood Urea Nitrogen 15 mg/dL (9-23); Calcium 9.8 mg/dL (8.3-10.6); Calcium (Corrected) 9.8 mg/dL (8.5-10.1); Carbon Dioxide 29.3 mMol/L (20.0-31.0); Chloride 103 mMol/L (98-107); Creatinine (Component) 1.1 mg/dL (0.6-1.3); Estimated Creatinine Clearance 71.9 mL/min (>60); Globulin 2.2 gm/dL (2.3-3.5); Glucose 123 mg/dL (74-106); Lipase 27 U/L (12-53); Osmolality,Calculated 288 (275-295); Potassium 4.2 mMol/L (3.4-5.1); Sodium 144 mMol/L (136-145); Total Protein 6.8 gm/dL (5.7-8.2); eGFR > 60 See Note
[2025-02-02 02:57] LABS: Bacteria,Urine Rare; Bilirubin,Urine Negative (Negative); Blood,Urine Trace (Negative); Clarity,Urine Clear (Clear/Hazy); Color,Urine Lt-Yellow (Lt Yel-Yel); Glucose, Urine Negative (Negative); Ketones,Urine Negative (Negative); Leukocyte Esterase,Urine Negative (Negative); Nitrite,Urine Negative (Negative); PH,Urine 5.5 (5.0-7.0); Protein,Urine Negative (Neg - Trace); RBC,Urine 1 /hpf (0-3); Specific Gravity,Urine 1.022 (1.001-1.035); Squamous Epithelial Cell,Urine < 1 /hpf (0-5); Urobilinogen,Urine Negative mg/dL (0.0-1.0)
[2025-02-02] MEDS: ONDANSETRON INJ 2 MG/ML INJ 2 ML 4 MG IVP (02:58)
[2025-02-02] MEDS: MORPHINE SULF INJ 4 MG/ML VIAL IVP (02:59)
--- NOTE | 2025-02-02 04:06 | PRELIM_ITS ---
CT scan of the abdomen and pelvis without intravenous contrast (axial sections with sagittal and coronal reformats) February 02, 2025 at 0241 hours Clinical History: Abdominal pain. Comparison: No prior study is available for comparison. Findings: The lung bases are clear. The liver, gallbladder, pancreas, spleen and adrenals are unremarkable on this noncontrast study. Nonobstructing right kidney stones. No hydronephrosis. No evidence of bowel obstruction. The appendix is within normal limits. There is no mesenteric or retroperitoneal adenopathy. The urinary bladder is nondistended, limited evaluation. There is no free fluid or free air. Degenerative changes of the imaged portions of the spine. No acute fractures. Bilateral L5 pars defects associated with mild anterolisthesis of L5. Prominent small bowel loops. Small hiatus hernia. Impression: 1. Prominent small bowel loops, consider enteritis and developing small bowel obstruction in the differential diagnosis. Please, correlate clinically. 2. Nonobstructing right nephrolithiasis. 3. Small hiatus hernia. Discussion Details: Results verbally communicated to : Dr Hernandez at 03:58 AM 02/02/2025 Report Electronically Signed By: Derek James 02/02/2025 4:05:10 AM [EST]
[2025-02-02 04:18] VITALS: BP 116/68; PULSE 70; RESP 19; O2SAT 95
== END 2025-02-02 04:19 | disposition home or self-care (01) ==
PROVIDERS: Nurse Practitioner Family; Emergency Provider Emergency Medicine
DX: R10.9 Unspecified abdominal pain (principal); R11.2 Nausea with vomiting, unspecified
CPT/HCPCS: 36415; 74176; 80053; 81001; 83690; 85025; 96374; 96375; 99283; J2270; J2405

== ENCOUNTER 2025-02-16 07:39 | Emergency (ER) | payer MEDICAID, SELFPAY ==
[2025-02-16 07:40] VITALS: BMI 30.6
[2025-02-16 07:46] VITALS: BP 152/71; PULSE 51; RESP 18; TEMP 36.7; O2SAT 98
--- NOTE | 2025-02-16 07:55 | XR_ITS ---
Examination: CT abdomen and pelvis without contrast. Coronal 3-D reconstructions. Sagittal 2-D reconstructions. Date and time of exam:February 16, 2025, 0818 hours, comparison 02/02/2025 INDICATIONS: Right-sided flank pain beginning this morning CTDI: vol (mGy): 9.05 DLP: (mGycm): 531 Technique: Axial images of the abdomen have been obtained, 3 mm slice thickness Intravenous contrast material has not been administered. Low dose protocols were performed. One or more of the following dose reduction techniques were used; automated exposure control, adjustment of the mA and/or KV according to patient size, use of iterative reconstruction technique. Findings: Minor atelectasis in the right lower lobe No visualized liver or splenic lesion No gallstones No pancreatic or adrenal mass Bilateral 1 to 3 mm renal calculi Minimal right hydronephrosis 6 mm proximal right ureteral calculus Aorta normal size Normal appendix No bowel obstruction Contracted urinary bladder Mild prostatomegaly Grade 1 spondylolisthesis L5 on S1 IMPRESSION: Minimal right hydronephrosis, 6 mm proximal right ureteral calculus
--- NOTE | 2025-02-16 07:56 | PD.EDABDPN ---
ED Abdominal Pain RME/HPI General Chief Complaint: Abdominal Pain Stated complaint: RIGHT LOWER ABD PAIN, VOMITING, DIAPHORETIC Time seen by provider: 02/16/25 07:50 Arrival date/time: 02/16/25 07:39 59-year-old male with no known medical history presents to the emergency room with a chief complaint of right lower abdominal pain and vomiting x 2 hours Source: patient Mode of arrival: ambulatory Limitations: no limitations Related Data Home Medications ?Medication ?Instructions ?Recorded ?Confirmed hydrocodone 10 mg-acetaminophen 1 tab PO TID PRN Pain 11/27/18 01/11/23 325 mg tablet ([place]) Previous Rx's ?Medication ?Instructions ?Recorded albuterol sulfate 90 mcg/actuation 2 inh inhalation Q4H PRN 03/04/22 aerosol inhaler (Proventil HFA) bronchospasm #6.7 grams ibuprofen 800 mg tablet (IBU) 800 mg PO Q8H #20 tabs 09/04/23 meloxicam 7.5 mg tablet 7.5 mg PO QDAY #10 tabs 01/21/24 methocarbamol 500 mg tablet 500 mg PO BID PRN neck strain #12 01/21/24 tabs ondansetron 4 mg disintegrating 4 mg PO Q8H PRN nausea and 03/13/24 tablet vomiting #20 tabs tamsulosin 0.4 mg capsule (Flomax) 0.4 mg PO QDAY #5 caps 03/13/24 cyclobenzaprine 10 mg tablet 10 mg PO BID PRN muscle spasm #10 11/02/24 tabs hydrocodone 5 mg-acetaminophen 325 1 tab PO Q6H PRN pain #10 tabs 11/02/24 mg tablet ondansetron 4 mg disintegrating 4 mg PO Q6H PRN nausea and 02/02/25 tablet vomiting #20 tabs Allergies Allergy/AdvReac Type Severity Reaction Status Date / Time No Known Allergies Allergy Verified 02/16/25 07:42 Review of Systems Review of Systems Systems Reviewed: All systems reviewed, normal except as documented Constitutional Constitutional: Reports system reviewed and no additional complaints, except as documented, Denies fatigue, Denies fever(s), Denies headache(s) and Denies weakness Eyes Eyes: Reports system reviewed and no additional complaints, except as documented, Denies blurry vision and Denies change in vision ENT Ears, Nose, Mouth, and Throat: Reports system reviewed and no additional complaints, except as documented, Denies otalgia, Denies headache(s), Denies nasal congestion, Denies throat swelling and Denies vertigo Cardiovascular Cardiovascular: Reports system reviewed and no additional complaints, except as documented, Denies chest pain, Denies dyspnea and Denies dyspnea on exertion Respiratory Respiratory: Reports system reviewed and no additional complaints, except as documented, Denies chest congestion, Denies cough, Denies dyspnea, Denies dyspnea on exertion and Denies wheezing Gastrointestinal Gastrointestinal: Reports system reviewed and no additional complaints, except as documented, Reports abdominal pain, Reports cramping, Denies diarrhea, Reports nausea and Reports vomiting Genitourinary Genitourinary: Reports system reviewed and no additional complaints, except as documented, Denies dysuria and Denies hematuria Musculoskeletal Musculoskeletal: Reports system reviewed and no additional complaints, except as documented and Denies back pain Integumentary/Breasts Skin/Breast: Reports system reviewed and no additional complaints, except as documented and Denies wounds Neurologic Neurologic: Reports system reviewed and no additional complaints, except as documented, Denies confusion, Denies headache(s), Denies lack of coordination, Denies vertigo and Denies weakness Psychiatric Psychiatric: Reports system reviewed and no additional complaints, except as documented, Denies anxiety, Denies confusion, Denies depression, Denies paranoia, Denies suicidal ideation and Denies tactile hallucinations Endocrine Endocrine: Reports system reviewed and no additional complaints, except as documented and Denies fatigue Hematologic/Lymphatic Hematologic/Lymphatic: Reports system reviewed and no additional complaints, except as documented and Denies lymphadenopathy Allergic/Immunologic Allergic/Immunologic: Reports system reviewed and no additional complaints, except as documented, Denies throat swelling, Denies urticaria and Denies wheezing ED Exam General Limitations: Present no limitations General appearance: Present alert and in no apparent distress Head Head exam: Present atraumatic Eye Eye exam: Present normal appearance, PERRL and EOMI ENT ENT exam: Present normal exam, normal oropharynx and mucous membranes moist Neck Neck exam: Present normal inspection, full ROM and trachea midline Chest Chest inspection: Present normal inspection and symmetric chest wall rise Respiratory Respiratory exam: Present normal lung sounds bilaterally Cardiovascular Cardiovascular exam: Present regular rate, normal rhythm and normal heart sounds Abdominal Exam Abdominal exam: Present soft, tenderness and normal bowel sounds; Absent Barbosa's sign or tenderness at McBurney's Point Abdominal tenderness: Present RLQ and moderate Extremities Exam Extremities exam: Present normal inspection and full ROM Back Exam Back exam: Present normal inspection, full ROM and CVA tenderness (R) Neurological Exam Neurological exam: Present alert, oriented X3 and CN II-XII intact Psychiatric Psychiatric exam: Present normal affect and normal mood Skin Skin exam: Present warm, dry, intact and normal color Course Quality Measures none Orders Category Date Time Status CT abdomen pelvis wo con Stat Exams 02/16/25 07:55 Ordered CBC Stat Lab 02/16/25 07:55 Ordered CMP [Comprehensive Metabolic Panel] Stat Lab 02/16/25 07:55 Ordered UA [Urinalysis] Stat Lab 02/16/25 07:55 Ordered Urine Culture Stat Lab 02/16/25 07:55 Ordered Ketorolac Inj [Toradol Inj] Med 02/16/25 07:55 Once 30 mg IM X1 ONE Ondansetron Odt [Zofran Odt] Med 02/16/25 07:55 Once 4 mg PO X1 ONE Vital Signs Vital signs: Vital Signs Temperature 98.1 F 02/16/25 07:46 Pulse Rate 51 L 02/16/25 07:46 Respiratory Rate 18 02/16/25 07:46 Blood Pressure 152/71 H 02/16/25 07:46 Pulse Oximetry (%) 98 02/16/25 07:46 Oxygen Delivery Method Room Air 02/16/25 07:46 Abdominal Pain MDM MDM Narrative MDM Narrative:: 59-year-old male with no known medical history presents to the emergency room with a chief complaint of right lower abdominal pain and vomiting x 2 hours Patient data External records reviewed:: [facility] previous records Clinical information provided by:: patient Social determinants that could affect healthcare access:: none Patient has the following chronic illnesses:: No chronic illness How is presenting disease/condition affected by chronic disease/condition?: no chronic disease Evaluation data The following diagnostics were reviewed and interpreted by me:: lab results and radiology exam(s) Lab and/or radiology exams considered but not ordered:: Labs and radiology exams considered and ordered Interpretation Summary: CT abdomen and pelvis- Medications / Prescriptions Medications or Prescriptions considered but not ordered:: Medication given Medication administrations:: Medication given Consultations Consultation(s) initiated? (list below): No Diagnosis Differential diagnosis abdominal pain: abdominal pain, acute appendicitis, calculus of kidney, constipation and gastroenteritis Admission Indicated Admission indicated?: not indicated Admission Request Was there a request for admission?: No Disposition Plan Disposition Plan: Discharge Discharge Attestation Discharge Attestation: The patient and all family members were given an opportunity to ask questions and understood the discharge instructions. Discharge instructions specifically effects, indications for sooner follow up or return to the emergency department, and the expected course of current diagnosis. Patient condition: Stable Discharge Plan Prescriptions/Referrals Prescriptions/Med Rec: No Action hydrocodone-acetaminophen [[place]] 10-325 mg Tablet 1 tab PO TID PRN (Reason: Pain) meloxicam 7.5 mg tablet 7.5 mg PO QDAY Qty: 10 0RF methocarbamol 500 mg tablet 500 mg PO BID PRN (Reason: neck strain) Qty: 12 0RF hydrocodone-acetaminophen 5-325 mg tablet 1 tab PO Q6H MDD maximum 4 tabs per day PRN (Reason: pain) Qty: 10 0RF cyclobenzaprine 10 mg tablet 10 mg PO BID PRN (Reason: muscle spasm) Qty: 10 0RF ondansetron 4 mg tablet,disintegrating 4 mg PO Q6H PRN (Reason: nausea and vomiting) Qty: 20 0RF albuterol sulfate [Proventil HFA] 90 mcg/actuation HFA aerosol inhaler 2 inh inhalation Q4H PRN (Reason: bronchospasm) Qty: 6.7 0RF ibuprofen [IBU] 800 mg tablet 800 mg PO Q8H Qty: 20 0RF tamsulosin [Flomax] 0.4 mg capsule 0.4 mg PO QDAY Qty: 5 0RF Rx Instructions: Stop taking if pass the stone ondansetron 4 mg tablet,disintegrating 4 mg PO Q8H PRN (Reason: nausea and vomiting) Qty: 20 0RF Patient/Caregiver Discharge Instructions Print Language: Greek
[2025-02-16] MEDS: KETOROLAC INJ 60 MG/2 ML VIAL 30 MG IM (08:01)
[2025-02-16] MEDS: ONDANSETRON ODT 4 MG TABRAP PO (08:01)
[2025-02-16 08:15] LABS: Basophils # (Auto) 0.0 Thou/mm3 (0.0-0.2); Basophils % (Auto) 1 % (0-2.5); Eosinophils # (Auto) 0.0 Thou/mm3 (0.0-0.5); Eosinophils % (Auto) 1 % (0-10); Hematocrit 45.7 % (41.0-53.0); Hemoglobin 15.0 g/dL (13.5-16.0); Immature Granulocytes Auto 0.06 Thou/mm3 (0.00-0.00); Lymphocytes # (Auto) 1.9 Thou/mm3 (1.0-4.8); Lymphocytes % (Auto) 24 % (10-50); Mean Corpuscular HGB Conc 32.8 g/dl (31.0-37.0); Mean Corpuscular Hemoglobin 31.1 pg (25.0-35.0); Mean Corpuscular Volume 95 fL (80-100); Monocytes # (Auto) 0.5 Thou/mm3 (0.0-0.8); Monocytes % (Auto) 6 % (0-12); Neutrophils # (Auto) 5.5 Thou/mm3 (1.8-7.7); Neutrophils % (Auto) 68 % (37-80); Nucleated Red Blood Cell # 0.00 Thou/mm3 (0.00-0.00); Nucleated Red Blood Cell % 0 /100 WBC (0); Platelet Count 207 Thou/mm3 (140-440); RDW Standard Deviation 45.8 fL (35.1-43.9); Red Blood Count 4.83 Miln/mm3 (4.50-5.90); White Blood Count 8.1 Thou/mm3 (3.8-10.6)
[2025-02-16 08:19] LABS: Collection Type, Urine Clean Catch
[2025-02-16 08:23] LABS: Bilirubin,Urine Negative (Negative); Blood,Urine 1+ (Negative); Clarity,Urine Clear (Clear/Hazy); Color,Urine Yellow (Lt Yel-Yel); Glucose, Urine Negative (Negative); Hyaline Casts,Urine < 1 /hpf (0-1); Ketones,Urine Negative (Negative); Leukocyte Esterase,Urine Negative (Negative); Nitrite,Urine Negative (Negative); PH,Urine 6.0 (5.0-7.0); Protein,Urine Negative (Neg - Trace); RBC,Urine 1 /hpf (0-3); Specific Gravity,Urine 1.030 (1.001-1.035); Squamous Epithelial Cell,Urine < 1 /hpf (0-5); Urobilinogen,Urine Negative mg/dL (0.0-1.0); WBC,Urine 1 /hpf (0-5)
[2025-02-16 08:32] LABS: Alanine Aminotransferase 18 U/L (10-49); Albumin, Serum 4.1 gm/dL (3.5-5.0); Albumin/Globulin Ratio 2.0 (1.2-2.2); Alkaline Phosphatase 47 U/L (46-116); Anion Gap 8 (7-16); Aspartate Amino Transferase 15 U/L (0-34); BUN/Creatinine Ratio 15 Ratio (12-20); Bilirubin,Total 0.9 mg/dL (0.3-1.2); Blood Urea Nitrogen 16 mg/dL (9-23); Calcium 9.1 mg/dL (8.3-10.6); Calcium (Corrected) 9.1 mg/dL (8.5-10.1); Carbon Dioxide 26.2 mMol/L (20.0-31.0); Chloride 108 mMol/L (98-107); Creatinine (Component) 1.1 mg/dL (0.6-1.3); Estimated Creatinine Clearance 71.9 mL/min (>60); Globulin 2.1 gm/dL (2.3-3.5); Glucose 109 mg/dL (74-106); Osmolality,Calculated 285 (275-295); Potassium 4.1 mMol/L (3.4-5.1); Sodium 142 mMol/L (136-145); Total Protein 6.2 gm/dL (5.7-8.2); eGFR > 60 See Note
--- NOTE | 2025-02-16 10:14 | PD.EDRME ---
Rapid Medical Screening Exam RME Arrival date/time: 02/16/25 07:39 59-year-old male with no known medical history presents to the emergency room with a chief complaint of right lower abdominal pain and vomiting x 2 hours I have greeted and performed a focused initial assessment of this patient. A comprehensive ED assessment and evaluation of the patient, analysis of all test results, and completion of the medical decision making process will be conducted by additional ED providers. Chief Complaint: Abdominal Pain Time Seen by Provider: 02/16/25 07:50 Vital signs: Vital Signs Temperature 98.1 F 02/16/25 07:46 Pulse Rate 51 L 02/16/25 07:46 Respiratory Rate 18 02/16/25 07:46 Blood Pressure 152/71 H 02/16/25 07:46 Pulse Oximetry (%) 98 02/16/25 07:46 Oxygen Delivery Method Room Air 02/16/25 07:46 Vital signs reviewed by provider: Yes
--- NOTE | 2025-02-16 13:41 | PD.EDABDPN ---
ED Abdominal Pain RME/HPI General Chief Complaint: Abdominal Pain Stated complaint: RIGHT LOWER ABD PAIN, VOMITING, DIAPHORETIC Time seen by provider: 02/16/25 07:50 Arrival date/time: 02/16/25 07:39 59-year-old male with no known medical history presents to the emergency room with a chief complaint of right lower abdominal pain and vomiting x 2 hours Source: patient Mode of arrival: ambulatory Limitations: no limitations RME / HPI RME / HPI narrative: 02/16/25 07:39 59-year-old male with no known medical history presents to the emergency room with a chief complaint of right lower abdominal pain and vomiting x 2 hours I have greeted and performed a focused initial assessment of this patient. A comprehensive ED assessment and evaluation of the patient, analysis of all test results, and completion of the medical decision making process will be conducted by additional ED providers. Related Data Home Medications ?Medication ?Instructions ?Recorded ?Confirmed hydrocodone 10 mg-acetaminophen 1 tab PO TID PRN Pain 11/27/18 01/11/23 325 mg tablet ([place]) Previous Rx's ?Medication ?Instructions ?Recorded albuterol sulfate 90 mcg/actuation 2 inh inhalation Q4H PRN 03/04/22 aerosol inhaler (Proventil HFA) bronchospasm #6.7 grams ibuprofen 800 mg tablet (IBU) 800 mg PO Q8H #20 tabs 09/04/23 meloxicam 7.5 mg tablet 7.5 mg PO QDAY #10 tabs 01/21/24 methocarbamol 500 mg tablet 500 mg PO BID PRN neck strain #12 01/21/24 tabs ondansetron 4 mg disintegrating 4 mg PO Q8H PRN nausea and 03/13/24 tablet vomiting #20 tabs tamsulosin 0.4 mg capsule (Flomax) 0.4 mg PO QDAY #5 caps 03/13/24 cyclobenzaprine 10 mg tablet 10 mg PO BID PRN muscle spasm #10 11/02/24 tabs hydrocodone 5 mg-acetaminophen 325 1 tab PO Q6H PRN pain #10 tabs 11/02/24 mg tablet ondansetron 4 mg disintegrating 4 mg PO Q6H PRN nausea and 02/02/25 tablet vomiting #20 tabs hydrocodone 5 mg-acetaminophen 325 1 tab PO BID PRN pain #10 tabs 02/16/25 mg tablet tamsulosin 0.4 mg capsule (Flomax) 0.4 mg PO QDAY #30 caps 02/16/25 Allergies Allergy/AdvReac Type Severity Reaction Status Date / Time No Known Allergies Allergy Verified 02/16/25 07:42 Review of Systems Review of Systems Systems Reviewed: All systems reviewed, normal except as documented Constitutional Constitutional: Reports system reviewed and no additional complaints, except as documented, Denies fatigue, Denies fever(s), Denies headache(s) and Denies weakness Eyes Eyes: Reports system reviewed and no additional complaints, except as documented, Denies blurry vision and Denies change in vision ENT Ears, Nose, Mouth, and Throat: Reports system reviewed and no additional complaints, except as documented, Denies otalgia, Denies headache(s), Denies nasal congestion, Denies throat swelling and Denies vertigo Cardiovascular Cardiovascular: Reports system reviewed and no additional complaints, except as documented, Denies chest pain, Denies dyspnea and Denies dyspnea on exertion Respiratory Respiratory: Reports system reviewed and no additional complaints, except as documented, Denies chest congestion, Denies cough, Denies dyspnea, Denies dyspnea on exertion and Denies wheezing Gastrointestinal Gastrointestinal: Reports system reviewed and no additional complaints, except as documented, Denies abdominal pain, Denies cramping, Denies nausea and Denies vomiting Genitourinary Genitourinary: Reports system reviewed and no additional complaints, except as documented, Denies dysuria and Denies hematuria Musculoskeletal Musculoskeletal: Reports system reviewed and no additional complaints, except as documented and Reports back pain Integumentary/Breasts Skin/Breast: Reports system reviewed and no additional complaints, except as documented and Denies wounds Neurologic Neurologic: Reports system reviewed and no additional complaints, except as documented, Denies confusion, Denies headache(s), Denies lack of coordination, Denies vertigo and Denies weakness Psychiatric Psychiatric: Reports system reviewed and no additional complaints, except as documented, Denies anxiety, Denies confusion, Denies depression, Denies paranoia, Denies suicidal ideation and Denies tactile hallucinations Endocrine Endocrine: Reports system reviewed and no additional complaints, except as documented and Denies fatigue Hematologic/Lymphatic Hematologic/Lymphatic: Reports system reviewed and no additional complaints, except as documented and Denies lymphadenopathy Allergic/Immunologic Allergic/Immunologic: Reports system reviewed and no additional complaints, except as documented, Denies throat swelling, Denies urticaria and Denies wheezing ED Exam General Limitations: Present no limitations General appearance: Present alert and in no apparent distress Head Head exam: Present atraumatic Eye Eye exam: Present normal appearance, PERRL and EOMI ENT ENT exam: Present normal exam, normal oropharynx and mucous membranes moist Neck Neck exam: Present normal inspection, full ROM and trachea midline Chest Chest inspection: Present normal inspection and symmetric chest wall rise Respiratory Respiratory exam: Present normal lung sounds bilaterally Cardiovascular Cardiovascular exam: Present regular rate, normal rhythm and normal heart sounds Abdominal Exam Abdominal exam: Present soft, tenderness and normal bowel sounds Abdominal tenderness: Present RLQ Extremities Exam Extremities exam: Present normal inspection and full ROM Back Exam Back exam: Present normal inspection, full ROM and CVA tenderness (R) Neurological Exam Neurological exam: Present alert, oriented X3 and CN II-XII intact Psychiatric Psychiatric exam: Present normal affect and normal mood Skin Skin exam: Present warm, dry, intact and normal color Course Quality Measures none Orders Category Date Time Status CT abdomen pelvis wo con Stat Exams 02/16/25 07:55 Completed CBC Stat Lab 02/16/25 08:09 Completed CMP [Comprehensive Metabolic Panel] Stat Lab 02/16/25 08:09 Completed UA [Urinalysis] Stat Lab 02/16/25 08:15 Completed Urine Culture Stat Lab 02/16/25 08:15 Received HYDROcodone*/APAP 5/325 [[place] 5/325] Med 02/16/25 13:36 Discontinued 1 tab PO X1 ONE Ketorolac Inj [Toradol Inj] Med 02/16/25 07:55 Discontinued 30 mg IM X1 ONE Ondansetron Odt [Zofran Odt] Med 02/16/25 07:55 Discontinued 4 mg PO X1 ONE Vital Signs Vital signs: Vital Signs Temperature 98.1 F 02/16/25 07:46 Pulse Rate 51 L 02/16/25 07:46 Respiratory Rate 18 02/16/25 07:46 Blood Pressure 152/71 H 02/16/25 07:46 Pulse Oximetry (%) 98 02/16/25 07:46 Oxygen Delivery Method Room Air 02/16/25 07:46 Abdominal Pain MDM MDM Narrative MDM Narrative:: 59-year-old male with no known medical history presents to the emergency room with a chief complaint of right lower abdominal pain and vomiting x 2 hours Patient is hemodynamically stable and in no apparent distress Physical examination shows right CVA tenderness with palpation as well as right lower quadrant abdominal tenderness. A CT of the abdomen and pelvis showed right ureteral calculi 6 mm. There is no leukocytosis there is no urinary tract infection CBC CMP are all within normal limits Patient was discharged and educated to follow-up with primary care provider in the next 24 to 48 hours and return to the emergency room for any evidence of worsening signs or symptoms Patient data External records reviewed:: [facility] previous records Clinical information provided by:: patient Social determinants that could affect healthcare access:: none Patient has the following chronic illnesses:: No chronic illness How is presenting disease/condition affected by chronic disease/condition?: no chronic disease Evaluation data The following diagnostics were reviewed and interpreted by me:: lab results and radiology exam(s) Lab and/or radiology exams considered but not ordered:: Labs and radiology exams considered and ordered Interpretation Summary: CT abdomen and pelvis-Findings: Minor atelectasis in the right lower lobe No visualized liver or splenic lesion No gallstones No pancreatic or adrenal mass Bilateral 1 to 3 mm renal calculi Minimal right hydronephrosis 6 mm proximal right ureteral calculus Aorta normal size Normal appendix No bowel obstruction Contracted urinary bladder Mild prostatomegaly Grade 1 spondylolisthesis L5 on S1 IMPRESSION: Minimal right hydronephrosis, 6 mm proximal right ureteral calculus Medications / Prescriptions Medications or Prescriptions considered but not ordered:: Medication given Medication administrations:: Medication Administration History Discontinued Medications Hydrocodone Bitart/Acetaminophen (Hydrocodone/[place] 5/325 Tablet) 1 tab PO X1 ONE Stop: 02/16/25 13:37 Last Admin: 02/16/25 13:57 Dose: 1 tab Documented By: FELIX Ketorolac Tromethamine (Ketorolac Inj 60 Mg/2 Ml Vial) 30 mg IM X1 ONE Stop: 02/16/25 07:56 Last Admin: 02/16/25 08:01 Dose: 30 mg Documented By: NELL Ondansetron HCl (Ondansetron Odt 4 Mg Tabrap) 4 mg PO X1 ONE; Protocol Stop: 02/16/25 07:56 Last Admin: 02/16/25 08:01 Dose: 4 mg Documented By: NELL Medication given Consultations Consultation(s) initiated? (list below): No Diagnosis Differential diagnosis abdominal pain: abdominal pain, acute appendicitis, constipation, gastroenteritis and other (Ureteral calculi) Most likely diagnosis given after review of the tests above:: Ureteral calculi Admission Indicated Admission indicated?: not indicated Admission Request Was there a request for admission?: No Disposition Plan Disposition Plan: Discharge Discharge Attestation Discharge Attestation: The patient and all family members were given an opportunity to ask questions and understood the discharge instructions. Discharge instructions specifically effects, indications for sooner follow up or return to the emergency department, and the expected course of current diagnosis. Patient condition: Stable Discharge Plan Plan Patient Disposition: HOME (Self Care) Discharge Disposition comment: Stable Prescriptions/Referrals Prescriptions/Med Rec: New tamsulosin [Flomax] 0.4 mg capsule 0.4 mg PO QDAY Qty: 30 0RF hydrocodone-acetaminophen 5-325 mg tablet 1 tab PO BID MDD 10mg PRN (Reason: pain) Qty: 10 0RF No Action hydrocodone-acetaminophen [[place]] 10-325 mg Tablet 1 tab PO TID PRN (Reason: Pain) meloxicam 7.5 mg tablet 7.5 mg PO QDAY Qty: 10 0RF methocarbamol 500 mg tablet 500 mg PO BID PRN (Reason: neck strain) Qty: 12 0RF hydrocodone-acetaminophen 5-325 mg tablet 1 tab PO Q6H MDD maximum 4 tabs per day PRN (Reason: pain) Qty: 10 0RF cyclobenzaprine 10 mg tablet 10 mg PO BID PRN (Reason: muscle spasm) Qty: 10 0RF ondansetron 4 mg tablet,disintegrating 4 mg PO Q6H PRN (Reason: nausea and vomiting) Qty: 20 0RF albuterol sulfate [Proventil HFA] 90 mcg/actuation HFA aerosol inhaler 2 inh inhalation Q4H PRN (Reason: bronchospasm) Qty: 6.7 0RF ibuprofen [IBU] 800 mg tablet 800 mg PO Q8H Qty: 20 0RF tamsulosin [Flomax] 0.4 mg capsule 0.4 mg PO QDAY Qty: 5 0RF Rx Instructions: Stop taking if pass the stone ondansetron 4 mg tablet,disintegrating 4 mg PO Q8H PRN (Reason: nausea and vomiting) Qty: 20 0RF Referrals: Michael Castro [Primary Care Provider] - In 1 week Problem List Clinical Impression: Right ureteral calculus Patient/Caregiver Discharge Instructions Education Materials: ED Kidney Stone w/ Colic Additional Instructions: Por favor, consulte con song m?dico de cabecera en las pr?ximas 24 a 48 horas. Song tomograf?a computarizada de abdomen y pelvis mostr? un c?lculo renal. Actualmente est? expulsando el c?lculo. Se envi? el medicamento a song farmacia; rec?jalo y t?cruz seg?n lo indicado. Si observa cualquier signo de empeoramiento de los signos o s?ntomas, acuda a urgencias de inmediato. Print Language: Pashto Stand Alone Forms: Leticia Award Info., Work/School Release, Patient Portal Info Letter PA/ORTHOTIC TECHNICIAN Supervising Physician PA/ORTHOTIC TECHNICIAN Supervising Physician: Dr. Og
[2025-02-16] MEDS: HYDROcodone/APAP 5/325 TABLET 1 TAB PO (13:57)
== END 2025-02-16 14:50 | disposition home or self-care (01) ==
PROVIDERS: Nurse Practitioner Family; Emergency Provider Emergency Medicine; PCP Physician Assistant
DX: N13.2 Hydronephrosis with renal and ureteral calculous obstruction (principal)
CPT/HCPCS: 36415; 74176; 80053; 81001; 85025; 87086; 96372; 99284; J1885; Q0162; A9270